=== PATIENT | female | born 1955 | race Caucasian/White ===

== ENCOUNTER → 2018-01-13 | Day surgery (SDC) | payer BC ==
[~2018-01-13] MED LIST: ALLERGY MED PO; BACITRACIN 50,000 UNIT VIAL ONE; BUPIVACAINE HCL 0.5% INJ 30 ML VIAL INJ ONE; CEFAZOLIN SOD 1 GM VIAL ONE; DEXAMETHASONE SOD PHOS INJ 4 MG/ML VIAL ONE; EPHEDRINE SULFATE INJ 50 MG/10 ML SYR ONE; ESTER-C PO; FENTANYL CITRATE/PF 100MCG/2 ML INJ ONE; KETOROLAC TROMETHAMINE 30 MG/ML VIAL ONE; LIDOCAINE HCL 2% LOCAL INJ 5 ML SDV VIAL INJ ONE; MAGNESIUM PO; MIDAZOLAM HCL 2 MG/2 ML VIAL ONE; MORPHINE SULFATE INJ 10 MG/ML ONE; OMEGA PO; ONDANSETRON HCL INJ 2 MG/ML VIAL ONE; PROPOFOL IV EMULSION 10 MG/ML 20 ML VIAL ONE; SEVOFLURANE INHAL SOLN 250 ML PEN BTL ONE; VITAMIN D PO; ZYRTEC10 M3 PO
--- NOTE | 2018-01-19 14:29 | Operative Report ---
DATE OF PROCEDURE: January 13, 2018 PREOPERATIVE DIAGNOSES 1. Right hallux valgus. 2. Right 2nd digit hammertoe. 3. Right tailor's bunion. POSTOPERATIVE DIAGNOSES 1. Right hallux valgus. 2. Right 2nd digit hammertoe. 3. Right tailor's bunion. PLANNED PROCEDURES 1. Right Lapidus bunionectomy. 2. Right 2nd digit arthroplasty. 3. Right tailor's bunionectomy. SURGEON: Nia ART DPM GYRO MECHANIC: Timothy Rubio DPM. ANESTHESIA: General with a postoperative block consisting of 15 mL of 0.5% Marcaine plain. HEMOSTASIS: Pneumatic thigh tourniquet set at 350 mmHg for a total time of approximately 1 hour 15 minutes. MATERIALS 1. One [employer] 4.0 cannulated x 42-mm cortical bone screw. 2. One 0-mm [place] plate. 3. Two 2.7-mm x 18-mm locking screws. 4. One 18-mm nonlocking screw. 5. One 16-mm nonlocking screw. 6. Vicryl 2-0, 3-0 Vicryl, 4-0 Prolene. 7. One 0.045 K-wire. ESTIMATED BLOOD LOSS: Less than 10 mL. PATHOLOGY: None. DETAILS OF PROCEDURE: Patient was seen in the preoperative waiting room where the correct procedure and site were identified. The patient was brought to the operating room and placed on the operating table in the supine position. General anesthesia was initiated at this time. A well-padded pneumatic tourniquet was placed about the patient's right thigh. The right foot, ankle and leg were then scrubbed, prepped draped in the usual aseptic manner. The right foot, ankle and leg were exsanguinated with an Esmarch bandage, and the pneumatic thigh tourniquet was inflated to 350 mmHg for a total time of approximately 1 hour 15 minutes. Attention was directed to the medial aspect of the patient's right foot where a large bunion deformity was noted. Utilizing a #15 blade, a large a lazy-S-type incision was performed over the 1st metatarsocuneiform joint extending to the 1st metatarsophalangeal joint. The incision was carried through the subcutaneous tissues, them from deeper underlying structures. All vital neurovascular structures were identified and retracted medially and laterally, and all bleeders were cauterized or ligated as deemed necessary. Next attention was directed to the proximal portion of the incision site where the 1st metatarsocuneiform joint was identified. The joint was freed of all capsular and ligamentous attachments and allowed to rotate freely. Next, utilizing a sagittal saw, a wedge resection was performed in the head of the medial cuneiform with the apex medial and the wedge lateral. Utilizing a sagittal saw, the articular cartilage of the base of the 1st metatarsal was also resected and passed off to the back table. Utilizing a rongeur and curet, the remainder of all articular cartilage was denuded and passed off to the back table. Next, a K-wire was drilled through the base of the 1st metatarsal to allow for rotation. Utilizing techniques of manipulation, distraction and rotation, the 1st metatarsal was reduced and temporarily fixated. This was confirmed via intraoperative fluoroscopy to have reduction of the IM angle and reduction of the tibial sesamoid position. Next, per tannery gummer's protocol, one 4.0-mm x 42-mm cortical bone screw was placed to allow for compression along the joint site. This was again confirmed via intraoperative fluoroscopy. Next, a [employer] medial [place] plate was placed for buttressing. This was placed with four 2.7-mm combination locking and nonlocking screws. Fixation site is stable. Next, attention was then directed to the head of the 1st metatarsal where the medial eminence was resected and passed off to the back table as well as a full lateral release was performed consisting of deep transverse metatarsal ligament, lateral collateral ligament as well as the fibular sesamoid ligament. The wound was then flushed with copious amounts of sterile saline. Capsule and deep tissue were reapproximated with 2-0 Vicryl, subcutaneous tissue with 3-0 Vicryl, and skin was closed using a running interlocking stitch with 4-0 Prolene. Next, attention was then directed to the 2nd digit where a 1-cm linear incision was made directly over the proximal interphalangeal joint. The incision was carried through subcutaneous tissues, them from deeper underlying structures. All vital neurovascular structures were identified and retracted medially and laterally, and all bleeders were cauterized or ligated as deemed necessary. Next, utilizing a #15 blade, tenotomy and capsulotomy were performed at the level of the proximal interphalangeal joint. The head of the proximal phalanx was freed of all capsular and ligamentous attachments. The head of the proximal phalanx was then resected utilizing a sagittal saw and passed off to the back table. The base of the middle phalanx was then denuded of all articular cartilage. Next, a stab incision was made at the level of 1st metatarsophalangeal joint where the extensor tendon was identified, cut to allow for reduction of the metatarsophalangeal joint. Next, in a retrograde fashion, a 0.045 double-ended K-wire was drilled through the middle and distal phalanx back into the proximal phalanx and into the metatarsal head. Attention was then directed to the lateral aspect of the patient's 5th metatarsal head where, utilizing a #15 blade, a 5-cm linear incision was made. The incision was carried through the subcutaneous tissues, them from deeper underlying structures. All vital neurovascular structures were identified and retracted medially and laterally. All bleeders were cauterized or ligated as deemed necessary. Next, utilizing a sagittal saw, the lateral eminence of the 5th metatarsal head was resected and passed off to the back table. They remainder of the bone was shaped into anatomic alignment utilizing a rotary bur. The wound was then flushed with copious amounts of sterile saline. Capsular and deep tissue were reapproximated with 2-0 Vicryl, subcutaneous tissue with 3-0 Vicryl, and the skin was closed using a running interlocking stitch with 4-0 Prolene. All incision sites were then dressed with Adaptic, 4 x 4's, Kerlix, Jon wrap. The 0.045 K-wire was bent, cut and capped. Next, Webril was applied followed by 4 x 30 posterior splint followed by a 4-inch Jon wrap and a 6-inch Jon wrap. The patient tolerated the procedure well and anesthesia well. Patient was transferred to the postoperative recovery unit with vital signs stable and vascular status intact. The patient was monitored there for a short period of time before being sent home with the following written and oral instructions: 1. Keep the dressing clean, dry and intact. 2. The patient is to remain nonweightbearing to the right lower extremity and to avoid any ambulation until being seen in the office. 3. Patient was given the office number and instructed to contact us if any problems should arise. Dictated by Timothy Rubio DPM. Job#: [id number] POLLY PATEL
== END | disposition home or self-care (01) ==
LOC: OR 05:15
PROVIDERS: ATTEND Podiatrist Foot & Ankle Surgery
DX: M20.11 Hallux valgus (acquired), right foot (principal); M21.171 Varus deformity, not elsewhere classified, right ankle; M21.621 Bunionette of right foot; M20.41 Other hammer toe(s) (acquired), right foot; Z01.810 Encounter for preprocedural cardiovascular examination
CPT/HCPCS: 28110; 28285; 28297; 93005; J0690; J1100; J1885; J2001; J2250; J2270; J2405

== ENCOUNTER → 2018-03-24 | Day surgery (SDC) | payer BC ==
[~2018-03-24] MED LIST changes: +ACETAMINOPHEN 1000 MG/100 ML IV ONE; -EPHEDRINE SULFATE INJ 50 MG/10 ML SYR ONE; +METOCLOPRAMIDE HCL 10 MG/2ML VIAL ONE; -MORPHINE SULFATE INJ 10 MG/ML ONE; +PHENYLEPHRINE HCL 1% 10 MG/ML VIAL ONE
--- OUTSIDE RECORDS SUMMARY | 2018-03-24 05:14 | XMS REPORT | Clinical Summary ---
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 Disp. Refills Start End Date Status Date omega-3 fatty Take by mouth. Active acids-vitamin E (FISH OIL) 1,000 mg capsule esomeprazole (NexIUM) 40 Take 1 capsule (40 mg 30 capsule 1 10/30/19 10/30/19 Active MG capsule total) by mouth daily 18 19 before breakfast. acetaminophen (TYLENOL) Take 325 mg by mouth Active 325 MG tablet every 6 (six) hours as needed for fever. ascorbate Take by mouth. 11/18/19 Discontin calcium-bioflavonoid 18 ued (MODESTO-C WITH BIOFLAVONOIDS) 500-200 mg tablet magnesium 200 mg tablet Take by mouth. 11/18/19 Discontin 18 ued CALCIUM CARBONATE Take by mouth. 11/18/19 Discontin (CALCIUM 500 ORAL) 18 ued cholecalciferol, vitamin Take by mouth. 10/30/19 Discontin D3, (VITAMIN D3) 400 unit 18 ued capsule amoxicillin-pot TK 1 T PO BID 0 12/08/19 10/18/19 Discontin clavulanate (AUGMENTIN) 17 18 ued 875-125 mg per tablet ondansetron ODT DIS 1 T ON THE TONGUE Q 6 0 12/08/19 11/18/19 Discontin (ZOFRAN-ODT) 4 MG H PRN NV 17 18 ued disintegrating tablet ibuprofen (ADVIL,MOTRIN) Take 200 mg by mouth 11/18/19 Discontin 200 MG tablet every 6 (six) hours as 18 ued needed for mild pain. cholecalciferol, vitamin Take 1,000 Units by mouth 11/18/19 Discontin D3, (VITAMIN D3) 1,000 daily. 18 ued unit tablet Hospital, Clinic, or Ordered Dose Route Frequency Start End Date Status Other Facility Date Administered Medication methylPREDNISolone 80 mg IM once 10/18/19 Active acetate (DEPO-MEDROL) 18 injection 80 mgIndications: Contact dermatitis due to plant Active Problems Problem Noted Date History of hysterectomy 10/29/2017 Epigastric pain 10/29/2017 Overview: given empiric tx; check labs; rtc if sx persist BMI 30.0-30.9,adult 10/29/2017 Overview: discussed wt loss and diet; Patellofemoral arthritis of left knee 05/16/2017 Immunization due 12/04/2016 Common cold 12/04/2016 Herpes zoster without complication 12/04/2016 Colon cancer screening 12/04/2016 Dysuria 07/11/2016 History of breast cancer 07/11/2016 Overview: 2002; due for mammogram History of left mastectomy 07/11/2016 Overview: as above Encounters Date Type Specialty Care Team Description 11/21/2017 Telephone Gastroenterology Dot Almanzar MD 11/20/2017 [facility] Radiology Dot Almanzar MD Epigastric pain Encounter 11/17/2017 Office Visit Gastroenterology Declan Martínez MD Epigastric pain (Primary Dot Almanzar MD Dx); Elevated lipase 11/17/2017 [facility] Radiology Declan Martínez MD History of breast cancer Encounter 11/17/2017 Ancillary Family Medicine Declan Martínez MD History of breast cancer Orders 10/30/2017 Orders Only Family Declan House MD Hypernatremia (Primary Dx); Hypercalcemia 10/30/2017 Orders Only Family Declan House MD Epigastric pain (Primary Dx); Elevated lipase; Hypercalcemia 10/29/2017 Office Visit Family Declan House MD Well adult exam (Primary Dx); History of hysterectomy; BMI 30.0-30.9,adult; Epigastric pain; History of breast cancer 10/17/2017 Office Visit Mayte Perez NP Contact dermatitis due to plant (Primary Dx); Vitreous floaters of right eye 05/16/2017 Office Visit Orthopedic Surgery Terell Espinoza MD Chronic pain of left knee (Primary Dx); Patellofemoral arthritis of left knee after 03/23/2017 Immunizations Name Dates Previously Given Next Due Zoster 12/04/2016 Family History Medical History Relation Name Comments Arthritis Father Emphysema Father Diabetes Mother Relation Name Status Comments Father Mother Social History Tobacco Use Types Packs/Day Years Used Date Never Smoker Smokeless Tobacco: Never Used Alcohol Use Drinks/Week oz/Week Comments No Sex Assigned at Date Recorded Not on file Last Filed Vital Signs Vital Sign Reading Time Taken Blood Pressure 127/81 11/17/2017 1:47 PM CDT Pulse 82 11/17/2017 1:47 PM CDT Temperature 36.8 C (98.2 F) 11/17/2017 1:47 PM CDT Respiratory Rate 16 10/29/2017 9:52 AM CDT Oxygen Saturation 98% 10/29/2017 9:52 AM CDT Inhaled Oxygen - - Concentration Weight 79 kg (174 lb 3.2 oz) 11/17/2017 1:47 PM CDT Height 160 cm (5' 3") 11/17/2017 1:47 PM CDT Body Mass Index 30.86 11/17/2017 1:47 PM CDT Plan of Treatment Health Maintenance Due Date Last Done Comments CERVICAL CANCER SCREENING 1978 SHINGRIX VACCINE (#1) 2007 INFLUENZA VACCINE 12/31/2017 BREAST CANCER SCREENING 11/18/2019 11/17/2017, 07/24/2016 COLON CANCER SCREENING 10/05/2020 10/05/2010 (Previously completed) ZOSTER VACCINE Completed 12/04/2016 Procedures Procedure Name Priority Date/Time Associated Diagnosis Comments CT ABDOMEN PELVIS W Routine 11/20/2017 Epigastric pain Results for this CONTRAST 7:57 AM CDT procedure are in the results section. CANCER ANTIGEN 19-9 Routine 11/17/2017 Epigastric pain Results for this 2:28 PM CDT procedure are in the results section. LIPASE LEVEL Routine 11/17/2017 Epigastric pain Results for this 2:28 PM CDT procedure are in the results section. AMYLASE LEVEL Routine 11/17/2017 Epigastric pain Results for this 2:28 PM CDT procedure are in the results section. MAMMO SCREENING W CAD Routine 11/17/2017 History of breast cancer Results for this RIGHT 7:58 AM CDT procedure are in the results section. LIPASE LEVEL Routine 10/29/2017 Results for this 10:45 AM CDT procedure are in the results section. URINALYSIS, AUTOMATED Routine 10/29/2017 Results for this WITH MICROSCOPY 10:45 AM CDT procedure are in the results section. CBC WITH PLATELET AND Routine 10/29/2017 Well adult exam Results for this DIFFERENTIAL 10:45 AM CDT procedure are in the results section. HEMOGLOBIN A1C Routine 10/29/2017 Well adult exam Results for this 10:45 AM CDT BMI 30.0-30.9,adult procedure are in the results section. HEPATIC FUNCTION PANEL Routine 10/29/2017 Well adult exam Results for this 10:45 AM CDT procedure are in the results section. LIPID PANEL Routine 10/29/2017 Well adult exam Results for this 10:45 AM CDT procedure are in the results section. BASIC METABOLIC PANEL Routine 10/29/2017 Well adult exam Results for this 10:45 AM CDT procedure are in the results section. XR KNEE 4+ VW LEFT Routine 05/16/2017 Chronic pain of left knee Results for this 2:46 PM [employer] procedure are in the results section. after 03/23/2017 Results * CT Abdomen Pelvis W Contrast (11/20/2017 7:57 AM) Narrative Performed At EXAMINATION:CT ABDOMEN PELVIS W CONTRAST [facility] CLINICAL HISTORY:R10.13 Epigastric pain, epigastric pain TECHNIQUE: Multiple axial images of the abdomen and pelvis were obtained following intravenous administration of iodinated contrast. Sagittal and coronal computerized reformatted images were also obtained. CT scans are performed using radiation dose reduction techniques. Technical factors are evaluated and adjusted to ensure appropriate moderation of exposure. Automated dose management technology is applied to adjust radiation exposure while achieving a diagnostic quality image. COMPARISON:None. IMPRESSION: Clear lung bases. Tiny hiatal hernia, correlate for reflux, which may be cause of patient's epigastric pain. Small bowel, appendix, colon are unremarkable. Abdominal aorta is unremarkable. Mild apparent narrowing and steep angulation of the proximal celiac axis, which is usually clinically insignificant. However in the absence of other explanation for patient's abdominal pain, median arcuate ligament syndrome may be entertained as a possibility. Cholecystectomy. Liver, spleen, pancreas, both adrenal glands and both kidneys are unremarkable. No hydronephrosis or hydroureter. Urinary bladder is unremarkable. No large adnexal masses, free fluid or significant adenopathy. Clips within the left breast soft tissues and anterior abdominal wall tissues. Osseous structures are intact with minimal degenerative changes. [facility]-[id number] Procedure Note Hm Interface, Radiology Results Incoming - 11/20/2017 4:48 PM CDT EXAMINATION: CT ABDOMEN PELVIS W CONTRAST CLINICAL HISTORY: R10.13 Epigastric pain, epigastric pain TECHNIQUE: Multiple axial images of the abdomen and pelvis were obtained following intravenous administration of iodinated contrast. Sagittal and coronal computerized reformatted images were also obtained. CT scans are performed using radiation dose reduction techniques. Technical factors are evaluated and adjusted to ensure appropriate moderation of exposure. Automated dose management technology is applied to adjust radiation exposure while achieving a diagnostic quality image. COMPARISON: None. IMPRESSION: Clear lung bases. Tiny hiatal hernia, correlate for reflux, which may be cause of patient's epigastric pain. Small bowel, appendix, colon are unremarkable. Abdominal aorta is unremarkable. Mild apparent narrowing and steep angulation of the proximal celiac axis, which is usually clinically insignificant. However in the absence of other explanation for patient's abdominal pain, median arcuate ligament syndrome may be entertained as a possibility. Cholecystectomy. Liver, spleen, pancreas, both adrenal glands and both kidneys are unremarkable. No hydronephrosis or hydroureter. Urinary bladder is unremarkable. No large adnexal masses, free fluid or significant adenopathy. Clips within the left breast soft tissues and anterior abdominal wall tissues. Osseous structures are intact with minimal degenerative changes. [facility]-[id number] Performing Organization Address City/[facility]/Zipcode Phone Number [facility] [address] [place] [address] * Cancer antigen 19-9 (11/17/2017 2:28 PM) CA 19-9 7 <34 U/mL [facility] Comment: [facility] This test was performed using II the Siemens chemiluminescent method. Values obtained from different assay methods cannot be used interchangeably. CA 19-9 levels, regardless of value, should not be interpreted as absolute evidence of the presence or absence of disease. Specimen Blood Narrative Performed At FASTING:NO [facility] FASTING: NO Other Results Text Performing Organization Information: Site ID: [id number] Name: [facility] Address: [address] [place] [address] Director: Dr. Jose Sheldon Performing Organization Address City/[facility]/Zipcode Phone Number [facility] [address] [place] [address] II * Lipase level (11/17/2017 2:28 PM) Only the most recent of 2 results within the time period is included. Lipase 19 7 - 60 U/L [facility] [place] Specimen Blood Narrative Performed At FASTING:NO [facility] FASTING: NO Other Results Text Performing Organization Information: Site ID: [id number] Name: [facility] Address: [address] [place] [phone] Director: Courtney Magallanes Performing Organization Address [facility] [place] [address] * Amylase level (11/17/2017 2:28 PM) Amylase 35 21 - 101 U/L [facility] [place] Specimen Blood Narrative Performed At FASTING:NO [facility] FASTING: NO Other Results Text Performing Organization Information: Site ID: [id number] Name: [email or web address] Address: [address] [place] [address] Director: Courtney Magallanes Performing Organization Address [facility] [place] [address] * Mammo Screening w Cad Right (11/17/2017 7:58 AM) Narrative Performed At PROCEDURE: MAMMO SCREENING W CAD RIGHT11/17/2017 7:35 AM [facility] This patient's mammogram was interpreted with the assistance of computer-aided detection (CAD). CLINICAL HISTORY: 62 -year-old female referred for screening mammogram.She has no new or current breast complaints. Personal history of left mastectomy for malignancy in 2002. FAMILY HISTORY:No reported family history of breast carcinoma. COMPARISON:07/24/2016, 09/01/2014. BREAST DENSITY:The breasts are heterogeneously dense, which may obscure small masses. DIGITAL SCREENING MAMMOGRAPHY FINDINGS: There are no dominant masses, suspicious microcalcifications or unexplained architectural distortion to suggest malignancy. The patient is status post left mastectomy. IMPRESSION: BI-RADS Category 2-Benign Findings. RECOMMENDATION: Annual mammography. The results of this exam have been sent to the patient. This facility is accredited by [employer] for Mammography. A negative x-ray report should not delay biopsy if a dominant or clinically suspicious mass is present. Not all cancers are identified by x-ray. [id number] Performing Organization Address City/State/Zipcode Phone Number [facility] [address] [place] [address] * Urinalysis, automated with microscopy (10/29/2017 10:45 AM) Color, UA YELLOW YELLOW [facility] [place] Appearance CLEAR CLEAR [facility] [place] Specific gravity, urine 1.013 1.001 - 1.035 [facility] [place] pH, urine 6.0 5.0 - 8.0 [facility] [place] Glucose, urine NEGATIVE NEGATIVE [facility] [place] Bilirubin, UA NEGATIVE NEGATIVE [facility] [place] Ketones, UA NEGATIVE NEGATIVE [facility] [place] Occult blood, urine NEGATIVE NEGATIVE [facility] [place] Protein, UA NEGATIVE NEGATIVE [facility] [place] Nitrite, UA NEGATIVE NEGATIVE [facility] [place] Leukocyte esterase, UA NEGATIVE NEGATIVE [facility] [place] WBC, UA NONE SEEN < OR=5 /HPF [facility] [place] RBC, UA NONE SEEN < OR=2 /HPF [facility] [place] Squamous epithelial 0-5 < OR=5 /HPF [facility] cells, UA [place] Bacteria, UA NONE SEEN NONE SEEN /HPF [facility] [place] Hyaline casts, UA NONE SEEN NONE SEEN /LPF [facility] [place] Other Results Text Performing Organization Information: Site ID: [id number] Name: [facility] Address: [address] [place] [phone] Director: Courtney Magallanes Performing Organization Address City/[facility]/Zipcode Phone Number [employer] [place] [phone] * CBC with platelet and differential (10/29/2017 10:45 AM) WBC 5.3 3.8 - 10.8 Thousand/uL [facility] [place] RBC 4.65 3.80 - 5.10 Million/uL [facility] [place] HGB 14.3 11.7 - 15.5 g/dL [facility] [place] HCT 43.4 35.0 - 45.0 % [facility] [place] MCV 93.3 80.0 - 100.0 fL [facility] [place] MCH 30.8 27.0 - 33.0 pg [facility] [place] MCHC 32.9 32.0 - 36.0 g/dL [facility] [place] RDW 12.7 11.0 - 15.0 % [facility] [place] Platelet count 305 140 - 400 Thousand/uL [facility] [place] MPV 9.7 7.5 - 12.5 fL [facility] [place] Neutrophils, absolute 2,984 1,500 - 7,800 cells/uL [facility] [place] Lymphocytes, absolute 1,680 850 - 3,900 cells/uL [facility] [place] Monocytes, absolute 482 200 - 950 cells/uL [facility] [place] Eosinophils, absolute 122 15 - 500 cells/uL [facility] [place] Basophils, absolute 32 0 - 200 cells/uL [facility] Neutrophils 56.3 % [facility] [place] Lymphocytes 31.7 % [facility] [place] Monocytes 9.1 % [facility] [place] Eosinophils 2.3 % [facility] [place] Basophils + RC 0.6 % [facility] [place] Specimen Blood Other Results Text Performing Organization Information: Site ID: [facility] Name: [email or web address] Lab Address: [address] [place] [phone] Director: Courtney Magallanes Performing Organization Address [facility] Centercode Phone Number [facility] [place] [address] * Hemoglobin A1c (10/29/2017 10:45 AM) Hemoglobin A1C 5.7 (H) <5.7 % of total Hgb [facility] Comment: [place] For someone without known diabetes, a hemoglobin A1c value between 5.7% and 6.4% is consistent with prediabetes and should be confirmed with a follow-up test. For someone with known diabetes, a value <7% indicates that their diabetes is well controlled. A1c targets should be individualized based on duration of diabetes, age, comorbid conditions, and other considerations. This assay result is consistent with an increased risk of diabetes. Currently, no consensus exists regarding use of hemoglobin A1c for diagnosis of diabetes for children. Specimen Blood Other Results Text Performing Organization Information: Site ID: [facility] Name: [facility] Address: [address] [place] [phone] Director: Courtney Magallanes Performing Organization Address City/[facility]/Zipcode Phone Number [facility] [address] [address] * Hepatic function panel (10/29/2017 10:45 AM) Protein 7.3 6.1 - 8.1 g/dL [facility] [place] Albumin, S 4.9 3.6 - 5.1 g/dL [facility] [place] Globulin, total 2.4 1.9 - 3.7 g/dL (calc) [facility] [place] Albumin/globulin ratio 2.0 1.0 - 2.5 (calc) [facility] Total bilirubin 0.4 0.2 - 1.2 mg/dL [facility] Bilirubin direct 0.1 < OR=0.2 mg/dL [facility] Bilirubin, indirect 0.3 0.2 - 1.2 mg/dL (calc) [facility] Alkaline phosphatase 92 33 - 130 U/L [facility] AST 13 10 - 35 U/L [facility] ALT 15 6 - 29 U/L [facility] Specimen Blood Other Results Text Performing Organization Information: Site ID: A Name: [facility] Address: [address] [place] [phone] Director: Courtney Magallanes Performing Organization Address City/State/Zipcode Phone Number [address] [address] * Lipid panel (10/29/2017 10:45 AM) Cholesterol, total 243 (H) <200 mg/dL [facility] HDL cholesterol 65 >50 mg/dL [facility] Triglycerides 192 (H) <150 mg/dL [facility] LDL cholesterol 145 (H) mg/dL (calc) [facility] calculated Comment: [place] Reference range: <100 Desirable range <100 mg/dL for primary prevention; <70 mg/dL for patients with CHD or diabetic patients with > or=2 CHD risk factors. LDL-C is now calculated using the Guero-Yakov calculation, which is a validated novel method providing better accuracy than the Friedewald equation in the estimation of LDL-C. Guero ZALDIVAR et al. JUDI. 2013;310(19): 9174-1965 (http://education.Lifesum.com/faq/UDD789) Cholesterol/HDL ratio 3.7 <5.0 (calc) [facility] Non-HDL cholesterol 178 (H) <130 mg/dL (calc) [facility] Comment: [place] For patients with diabetes plus 1 major ASCVD risk factor, treating to a non-HDL-C goal of <100 mg/dL (LDL-C of <70 mg/dL) is considered a therapeutic option. Specimen Blood Other Results Text Performing Organization Information: Site ID: A Name: [email or web address] Address: [address] [place] [phone] Director: Courtney Magallanes Performing Organization Address [facility] Phone Number [employer] [place] [address] [place] [address] * Basic metabolic panel (10/29/2017 10:45 AM) Glucose 101 (H) 65 - 99 mg/dL [facility] Comment: [place] Fasting reference interval For someone without known diabetes, a glucose value between 100 and 125 mg/dL is consistent with prediabetes and should be confirmed with a follow-up test. BUN, whole blood 14 7 - 25 mg/dL [facility] [place] Creatinine 0.69 0.50 - 0.99 mg/dL [facility] Comment: [place] For patients >49 years of age, the reference limit for Creatinine is approximately 13% higher for people identified as -[place]. EGFR Non-Afr. [place] 95 > OR=60 mL/min/1.73m2 [facility] [place] EGFR 110 > OR=60 mL/min/1.73m2 [facility] [place] BUN/creatinine ratio NOT APPLICABLE 6 - 22 (calc) [facility] [place] Sodium 147 (H) 135 - 146 mmol/L [facility] [place] Potassium 5.4 (H) 3.5 - 5.3 mmol/L [facility] [place] Chloride 107 98 - 110 mmol/L [facility] [place] CO2 32 (H) 20 - 31 mmol/L [facility] [place] Calcium 11.0 (H) 8.6 - 10.4 mg/dL [facility] [place] Specimen Blood Other Results Text Performing Organization Information: Site ID: [id number] Name: [facility] Address: [address] [place] [phone] Director: Courtney Magallanes Performing Organization Address [facility] Phone Number [employer] [place] [address] [place] [address] * XR Knee 4+ Vw Left (05/16/2017 2:46 PM) Narrative Performed At [facility] Weightbearing AP and PA x-rays on both knees along with a lateral x-ray of the left knee: His are basically normal studies with the exception on the lateral view there does appear to be some minor spurring on the patella and the superior and inferior articular edges but no demonstrable joint narrowing Performing Organization Address [facility] Centercomn Phone Number [facility] [address] [place] [address] after 03/23/2017 Insurance Payer Benefit Subscriber ID Type Phone Address Plan / Group BCBS BCBS xxxxxxxxxxxxxxx PPO CHOICE PPO/[place] [address] Home:
[2018-03-24 08:50] VITALS: BP 138/92
--- NOTE | 2018-03-24 08:53 | Operative Report ---
DATE OF PROCEDURE: March 24, 2018 PREOPERATIVE DIAGNOSES: 1. Left hallux valgus. 2. Left tailor's bunion. 3. Left second digit hammertoe. POSTOPERATIVE DIAGNOSES: 1. Left hallux valgus. 2. Left tailor's bunion. 3. Left second digit hammertoe. PLANNED PROCEDURES: 1. Left Jose bunionectomy with first metatarsal osteotomy and internal fixation. 2. Left tailor's bunionectomy. 3. Left second digit arthroplasty. SURGEON: Dr. Marky DPM [employer]: Timothy Rubio DPM ANESTHESIA: General with a postoperative block consisting of 20 mL of 0.5% Marcaine plain mixed with 1 mL of dexamethasone phosphate. HEMOSTASIS: Pneumatic thigh tourniquet set at 350 mmHg for a total time of approximately 1 hour. MATERIALS: Two 2.0 mm x 12 mm cortical bone screws, 2-0 Vicryl, 3-0 Vicryl, 4-0 Prolene. One 0.045 K-wire. ESTIMATED BLOOD LOSS: Less than 10 mL. PROCEDURE NOTE: The patient was seen in the preoperative waiting room where the correct procedure and site were identified. The patient was brought into the operating room and placed on the operating table in the supine position. General anesthesia was initiated at this time. A well-padded pneumatic tourniquet was placed about the patient's left thigh. The left foot, ankle, and leg were then scrubbed, prepped and draped in the usual aseptic manner. The left foot, ankle, and leg were exsanguinated with an Esmarch bandage, and the pneumatic thigh tourniquet was inflated to 350 mmHg for a total time of approximately 1 hour. Attention was directed to dorsomedial aspect of the patient's left first metatarsophalangeal joint where a 5-cm curvilinear incision was made. The incision was carried through the subcutaneous tissue, them from deeper underlying structures. All vital neurovascular structures were identified, retracted medially and laterally, and all bleeders were cauterized or ligated as deemed necessary. At this time through the same incision, a full lateral release was performed consisting of the deep transverse metatarsal ligament, lateral collateral ligament as well as the fibular sesamoid ligament. The hallux was then put through range of motion and found to be functioning in more proper anatomic alignment. Next, attention was directed to the medial aspect of first metatarsal where an inverted-L capsulotomy was performed to allow for good visualization of the first metatarsal head. Utilizing a sagittal saw, the medial eminence was resected and passed off to the back table. Next, the capital fragment was transposed laterally approximately 3 to 4 mm and impacted onto the shaft of the first metatarsal. This was temporarily fixated with a K-wire and permanently fixated utilizing techniques of AO fixation with two 2.0 mm x 12 mm cortical bone screws. Fixation site is stable. This was confirmed via intraoperative fluoroscopy. The incision site was then flushed with copious amounts of sterile saline. Capsule and deep tissue reapproximated with 2-0 Vicryl, subcutaneous tissue with 3-0 Vicryl, and the skin was closed using a running interlocking stitch with 4-0 Prolene. Attention was then directed to the left second digit where a 1.5-cm linear incision was made directly over the proximal interphalangeal joint. The incision was carried through the subcutaneous tissue, them from deeper underlying structures. All vital neurovascular structures were identified, retracted medially and laterally, and all bleeders were cauterized or ligated as deemed necessary. At this time, a tenotomy and capsulotomy was performed at the level of the proximal interphalangeal joint. The head of the proximal phalanx was freed of all capsular and ligamentous attachments. Utilizing a sagittal saw, the head of the proximal phalanx was resected and passed off to the back table as well as the base of the middle phalanx. Next, a 1-cm incision was made over the metatarsophalangeal joint. Utilizing a hemostat, the extensor tendon was easily identified, and tenotomy and capsulotomy was performed at the level of the metatarsophalangeal joint. Next, utilizing a double-ended K-wire in a retrograde fashion, it was drilled through the middle and distal phalanx back to the proximal phalanx into the metatarsal head and again was confirmed via intraoperative fluoroscopy. The wound was then flushed with copious amounts of sterile saline. Tendon was reapproximated with 3-0 Vicryl and the skin was closed using running simple interrupted sutures with 4-0 nylon. Next, the K-wire was bent and a pin was placed. Next, attention was directed to the fifth metatarsal head where a 4-cm curvilinear incision was made directly over the fifth metatarsophalangeal joint. The incision was carried through the subcutaneous tissue, them from deeper underlying structures. All vital neurovascular structures were identified, retracted medially and laterally, and all bleeders were cauterized or ligated as deemed necessary. Next, the lateral eminence of the fifth metatarsal head was resected and passed off to the back table. The wound was then flushed with copious amounts of sterile saline. Capsule and deep tissue reapproximated with 3-0 Vicryl, subcutaneous tissue with 3-0 Vicryl, and the skin was closed using a running interlocking stitch with 4-0 Prolene. All incision sites were dressed with Adaptic, 4 x 4's, Kerlix, Webril, Unna's boot, and Jon wrap. The patient tolerated the procedure and anesthesia well. The patient was transferred to the postoperative recovery unit with vital signs stable and vascular status intact. The patient was monitored there for a short period of time before being sent home with the following written and oral instructions: 1. Keep the dressing clean, dry, and intact. 2. The patient is to remain partial weightbearing in a postop shoe, to avoid excessive ambulation until being seen in the office. 3. The patient was given the office number and instructed to contact us if any problems should arise. Dictated by: Timothy Rubio DPM Job#: [id number] DR PATEL
== END | disposition home or self-care (01) ==
LOC: OR 05:12
PROVIDERS: ATTEND Podiatrist Foot & Ankle Surgery
DX: M20.12 Hallux valgus (acquired), left foot (principal); M21.622 Bunionette of left foot; M20.42 Other hammer toe(s) (acquired), left foot; M19.90 Unspecified osteoarthritis, unspecified site; J30.2 Other seasonal allergic rhinitis; K44.9 Diaphragmatic hernia without obstruction or gangrene; Z85.3 Personal history of malignant neoplasm of breast
CPT/HCPCS: 28110; 28270; 28285; 28296; C1713; J0690; J1100; J1885; J2001; J2250; J2370; J2405; J2765